=== PATIENT | female | born 1945 | race Caucasian/White ===

== ENCOUNTER 2018-03-06 05:00 | Day surgery (SDC) | payer OTHER ==
[~2018-03-06 05:00] MED LIST: AMARLY PO; CLONAZEPAM1 MG PO; NORVASC5 MG PO
[2018-03-06] MEDS ORDERED: ULTRACET PO (12:54)
[2018-03-06] MEDS ORDERED: MACROBID 100 M100 MG PO (12:54)
== END 2018-03-06 13:40 | disposition home or self-care (01) ==
LOC: CIR.AMB 05:00 → EDBD 05:00 → CIR.AMB 05:30
DX: N81.3 Complete uterovaginal prolapse (principal)